=== PATIENT | male | born 1955 | race African-American/Black ===

== ENCOUNTER 2016-08-03 12:52 | Emergency (ER) | payer SELFPAY ==
[2016-08-03] MEDS ORDERED: KETOROLAC TROMETHAMINE 60 MG/2 ML SDV IM ONE (12:53)
[2016-08-03] MEDS ORDERED: ONDANSETRON 4 MG TAB.RAPDIS PO ONE (12:54)
[2016-08-03] MEDS ORDERED: KETOROLAC TROMETHAMINE INJ/PF 30 MG/1 ML SDV IV ONE (12:59)
--- NOTE | 2016-08-03 13:00 | ER Document Report ---
ED Medical Screen (RME) - General Stated Complaint: RIGHT FLANK PAIN, BACK PAIN Time seen by provider: 12:55 Mode of Arrival: Wheelchair Information source: Patient Notes: 60 yo male c/o right flank pain for 1.5 hours, sharp, can't keep still, radiates in RLQ, not testicles. Severe. Diarrhea last night., nauseated. TRAVEL OUTSIDE OF THE [place] IN LAST 30 DAYS: No - Related Data Allergies/Adverse Reactions: No Known Allergies Allergy (Verified 02/08/15 14:50) Past Medical History Pulmonary Medical History: Reports: Hx Asthma Past Surgical History: Reports: Hx Orthopedic Surgery - neck - Immunizations Hx Diphtheria, Pertussis, Tetanus Vaccination: Yes
--- NOTE | 2016-08-03 13:35 | ER Document Report ---
ED General - General Chief Complaint: Vomiting/Diarrhea Stated Complaint: RIGHT FLANK PAIN, BACK PAIN Mode of Arrival: Wheelchair Information source: Patient Notes: Patient presents emergency department with complaints of right-sided flank pain. He reports it happened yesterday while he was at work he had a sharp pain and then it went away after one hour. This a.m. he started having the pain again, vomited. He puts his never had this pain before. He denies history of kidney stones. Denies trauma. Also denies fever reports episode of diarrhea. TRAVEL OUTSIDE OF THE [place] IN LAST 30 DAYS: No - HPI Onset: Yesterday Onset/Duration: Sudden Quality of pain: Sharp Severity: Severe Pain Level: 5 Associated symptoms: Diarrhea, Nausea, Vomiting Exacerbated by: Denies Relieved by: Denies Similar symptoms previously: No Recently seen / treated by doctor: No - Related Data Allergies/Adverse Reactions: No Known Allergies Allergy (Verified 02/08/15 14:50) Past Medical History - General Information source: Patient - Social History Smoking Status: Current Every Day Smoker Cigarette use (# per day): Yes Chew tobacco use (# tins/day): No Frequency of alcohol use: None Drug Abuse: None Occupation: produce Family History: Reviewed & Not Pertinent Patient has suicidal ideation: No Patient has homicidal ideation: No Pulmonary Medical History: Reports: Hx Asthma Renal/ Medical History: Denies: Hx Peritoneal Dialysis Past Surgical History: Reports: Hx Orthopedic Surgery - neck - Immunizations Hx Diphtheria, Pertussis, Tetanus Vaccination: Yes Review of Systems - Review of Systems Notes: Review HPI for review of systems., All other systems negative Physical Exam - Vital signs Vitals: Temp Pulse Resp BP Pulse Ox 97.5 F 66 22 H 145/108 H 100 08/03/16 12:53 08/03/16 12:53 08/03/16 12:53 08/03/16 12:53 08/03/16 12:53 - Notes Notes: PHYSICAL EXAMINATION: GENERAL: Well-appearing and in no acute distress HEAD: Atraumatic, normocephalic. EYES: Pupils equal round , extraocular movements intact, sclera anicteric, conjunctiva are normal. ENT: nares patent, Moist mucous membranes. NECK: Normal range of motion, supple without lymphadenopathy LUNGS: CTAB and equal. No wheezes rales or rhonchi. HEART: Regular rate and rhythm without murmurs ABDOMEN: Soft, no tenderness. No guarding, no rebound slight right upper quad pain BACK: right flank pain EXTREMITIES: Normal range of motion, no pitting edema. No cyanosis. NEUROLOGICAL: Cranial nerves grossly intact. Normal sensory/motor PSYCH: Normal mood, normal affect. SKIN: Warm, Dry, normal turgor, no rashes or lesions noted Course - Re-evaluation Re-evalutation: 08/03/16 She reports he felt much better after Toradol. He was instructed on kidney stones importance of follow-up he was also instructed on Flomax potential for hypo-tension importance of changing positions slowly. He verbalized understanding to all instructions - Vital Signs Vital signs: Temp Pulse Resp BP Pulse Ox 97.6 F 62 16 128/72 H 94 08/03/16 16:07 08/03/16 16:07 08/03/16 16:07 08/03/16 16:07 08/03/16 16:07 - Laboratory Result Diagrams: 08/03/16 13:55 08/03/16 13:55 Laboratory results interpreted by me: 08/03/16 08/03/16 08/03/16 13:55 13:55 14:40 Hgb 12.9 L Seg Neutrophils % 83.3 H Lymphocytes % 10.9 L Glucose 135 H Urine Protein 30 H Urine Ketones TRACE H Urine Blood SMALL H - Diagnostic Test Radiology reviewed: Image reviewed, Reports reviewed - IMPRESSION: Tiny obstructing calculus at the level of the uterovesical junction on the right. No renal calculi are identified. Other findings as noted above Discharge - Discharge Clinical Impression: Flank pain, Kidney stone on right side Condition: Stable Disposition: HOME, SELF-CARE Instructions: Oral Narcotic Medication ([facility]), Antinausea Medication ([facility]), Flank Pain ([facility]), Kidney Stone ([facility]), Flomax ([facility]), Family Physicians / Practices Additional Instructions: *You have been evaluated for flank pain, vomiting, kidney stone *Take medication as prescribed- flomax as well as percocet may make you lightheaded. change positions slowly, monitor your blood pressure *Strain your urine, push fluids *Follow up with a urologist within on week for recheck *Follow up with a primary care provider within 5days *Return to ED for worsening condition, changes, needs, increased pain, fever *Return to ED if not better in 24 hours Prescriptions: Ondansetron [Zofran Odt 4 mg Tablet] 1 - 2 tab PO Q4H #10 tab.rapdis Oxycodone HCl/Acetaminophen [Percocet 5-325 mg Tablet] 1 - 2 tab PO ASDIR PRN # 20 tablet PRN Reason: Tamsulosin HCl [Flomax 0.4 mg Cap.sr] 0.4 mg PO DAILY #7 cap.sr.24h Forms: Return to Work Referrals: [facility] [Provider Group] - Follow up in 3-5 days
[2016-08-03 14:47] LABS: ABSOLUTE LYMPHOCYTES (AUTO) 0.9 10^3/uL (0.5-4.7); ABSOLUTE MONOCYTES (AUTO) 0.4 10^3/uL (0.1-1.4); BASOPHILS % (AUTO) 0.2 % (0-2); EOSINOPHILS % (AUTO) 0.3 % (0-6); HEMOGLOBIN 12.9 g/dL (13.5-17.0); HGB HCT DIFFERENCE -0.3; LYMPHOCYTES % (AUTO) 10.9 % (13-45); MEAN CORPUSCULAR VOLUME 85 fl (80-97); MONOCYTES % (AUTO) 5.3 % (3-13); RED BLOOD COUNT 4.59 10^6/uL (4.35-5.55); RED CELL DISTRIBUTION WIDTH 13.6 % (11.5-14.0); SEGMENTED NEUTROPHILS % (AUTO) 83.3 % (42-78); WHITE BLOOD COUNT 8.4 10^3/uL (4.0-10.5)
[2016-08-03 14:53] LABS: ALANINE AMINOTRANSFERASE 35 U/L (21-72); ALBUMIN 3.8 g/dL (3.5-5.0); ALKALINE PHOSPHATASE 74 U/L (38-126); ANION GAP 10 (5-19); ASPARTATE AMINO TRANSFERASE 23 U/L (17-59); BILIRUBIN,TOTAL 0.6 mg/dL (0.2-1.3); BLOOD UREA NITROGEN 18 mg/dL (7-20); CALCIUM 9.3 mg/dL (8.4-10.2); CARBON DIOXIDE 27 mmol/L (22-30); CHLORIDE 104 mmol/L (98-107); CREATININE RESULT 1.14 mg/dL (0.52-1.25); GLUCOSE 135 mg/dL (75-110); LIPASE 59.4 U/L (23-300); POTASSIUM 4.6 mmol/L (3.6-5.0); SODIUM 141.1 mmol/L (137-145)
[2016-08-03 15:09] LABS: APPEARANCE,URINE SLIGHTLY-CLOUDY; BILIRUBIN,URINE NEGATIVE (NEGATIVE); GLUCOSE, URINE NEGATIVE (NEGATIVE); KETONES,URINE TRACE mg/dL (NEGATIVE); LEUKOCYTE ESTERASE,URINE NEGATIVE (NEGATIVE); NITRITE,URINE NEGATIVE (NEGATIVE); PROTEIN,URINE 30 mg/dL (NEGATIVE); URINE SPECIFIC GRAVITY 1.036; UROBILINOGEN,URINE NEGATIVE mg/dL (<2.0)
[2016-08-03] MEDS ORDERED: TAMSULOSIN HCL 0.4 MG CAP.SR.24H PO ONE (15:39)
[2016-08-03 16:08] VITALS: BP 128/72
== END 2016-08-03 16:07 | disposition home or self-care (01) ==
LOC: ER 12:52
DX: N20.0 Calculus of kidney (principal); R10.9 Unspecified abdominal pain; R19.7 Diarrhea, unspecified; M54.9 Dorsalgia, unspecified; F17.210 Nicotine dependence, cigarettes, uncomplicated
CPT/HCPCS: 99284; 96374; 36415; 87086; 83690; 85025; 80053; 81001; 76380; S0119; J1885